=== PATIENT | female | born 1995 | race Caucasian/White ===

== ENCOUNTER 2017-01-13 11:23 | Emergency (ER) | payer OTHER ==
[2017-01-13 11:31] VITALS: BP 123/86
--- NOTE | 2017-01-13 12:45 | UC ---
Throat Pain/Nasal Ankit HPI - HPI Summary HPI Summary: THREE DAYS OF LYMPHNODE ENLARGEMENT ON NECK. 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 LYMPH NODES HAVE DOUBLED IN SIZE SINCE YESTERDAY. NO FEVER. NO FATIGUE. NO COUGH. NO ABDOMINAL PAIN. NO SORE THROAT. NO SOB. - History of Current Complaint Chief Complaint: UCRespiratory Stated Complaint: THROAT PAIN Time Seen by Provider: 01/13/17 12:00 Hx Obtained From: Patient Hx Last Menstrual Period: THIS WEEK Onset/Duration: Gradual Onset, Lasting Days Severity: Moderate Pain Intensity: 0 Pain Scale Used: 0-10 Numeric Cough: None Associated Signs & Symptoms: Positive: Dysphagia, Hoarseness - Epiglottits Risk Factors Epiglottis Risk Factors: Sudden Onset, Muffled Voice - Allergies/Home Medications Allergies/Adverse Reactions: Allergies Allergy/AdvReac Type Severity Reaction Status Date / Time erythromycin ophthalmic Allergy Severe Swelling Uncoded 01/13/17 11:31 Of Face,Lips,& Throat PMH/Surg Hx/FS Hx/Imm Hx Previously Healthy: Yes - Surgical History Surgical History: Yes Surgery Procedure, Year, and Place: BONE MARROW TRANSPLANT [id number]. PERICARDIAL REPAIR AGE 5. BILAT BUNIONECTOMY 2012 [facility]. THYROIDECTOMY 08/2013 [facility]. MULTIPLE EXC SKIN LESIONS. Nerve sheath removal 2016. giant T cell removal 2017. osteosarcomas removed ANKLE,KNEE AND R HAND - 2007, 2009, 2011. Giant T Cell removed 2016. schwannoma removed left ribs april 2016 - Family History Known Family History: Negative: Respiratory Disease - Social History Occupation: Student Lives: With Family Alcohol Use: Occasionally Alcohol Amount: once every 2 weeks Substance Use Type: None Smoking Status (MU): Never Smoked Tobacco - Immunization History Most Recent Influenza Vaccination: 12/2016 Vaccination Up to Date: Yes Review of Systems Constitutional: Negative Skin: Negative Eyes: Negative ENT: Sore Throat, Other - LYMPHNODE ENLARGEMENT Respiratory: Negative Cardiovascular: Negative Gastrointestinal: Negative Genitourinary: Negative Motor: Negative Neurovascular: Negative Musculoskeletal: Negative Neurological: Negative Psychological: Negative Is Patient Immunocompromised?: No All Other Systems Reviewed And Are Negative: Yes Physical Exam Triage Information Reviewed: Yes Appearance: No Pain Distress, Well-Nourished, Ill-Appearing Vital Signs: Initial Vital Signs Temp 98.9 F 01/13/17 11:24 Pulse 113 01/13/17 11:24 Resp 16 01/13/17 11:24 BP 123/86 12/02/17 11:24 Pulse Ox 100 01/13/17 11:24 Vital Signs Reviewed: Yes Eye Exam: Normal ENT: Positive: TMs normal Dental Exam: Normal Neck: Positive: Tenderness @ - ANTERIOR CERVICAL CHAIN, Enlarged Nodes @ - ANTERIOR CERVICAL CHAIN SIGNIFICANT LN ENLARGEMENT Respiratory Exam: Normal Respiratory: Positive: Chest non-tender, Lungs clear, Normal breath sounds, No respiratory distress, No accessory muscle use Cardiovascular Exam: Normal Cardiovascular: Positive: RRR, No Murmur, Pulses Normal, Brisk Capillary Refill Abdominal Exam: Normal Musculoskeletal Exam: Normal Musculoskeletal: Positive: Strength Intact, ROM Intact Neurological Exam: Normal Psychological Exam: Normal Skin Exam: Normal Throat Pain/Nasal Course/Dx - Differential Dx/Diagnosis Differential Diagnosis/HQI/PQRI: Epiglottitis, Paul's Angina, Mononucleosis, Peritonsillar Abscess, Tonsillitis, Other - MUMPS; HEME/ONCOLOGICAL PATHOLOGY Provider Diagnoses: ANTERIOR CERVICAL LYMPHADENOPATHY Discharge - Discharge Plan Condition: Stable Disposition: OTHER Discharge Disposition Comment: ADVISED TO GO TO ED, REFUSED AMBULANCE Patient Education Materials: Lymphadenopathy (ED) Referrals: Kwaku Rowell MD [Primary Care Provider] - Additional Instructions: YOU HAVE REFUSED THE OFFER OF AMBULANCE TRANSPORT AND HAVE ELECTED TO GO TO THE EMERGENCY DEPARTMENT BY PRIVATE CAR. YOU ARE ADVISED TO PROCEED SAFELY, BUT DIRECTLY TO THE EMERGENCY DEPARTMENT FOR CONTINUED EVALUATION.
== END 2017-01-13 12:24 ==
LOC: UCEAST 11:23
DX: R59.1 Generalized enlarged lymph nodes (principal); Z72.89 Other problems related to lifestyle
CPT/HCPCS: 87651; 99212; G0463

== ENCOUNTER 2017-01-13 12:46 | Emergency (ER) | payer OTHER ==
[2017-01-13] MEDS ORDERED: NS 0.9% 1000 ML* 1,000 ML IV ONE (13:13)
[2017-01-13 13:42] LABS: Hematocrit 36 % (35-47); Hemoglobin 12.5 g/dl (12.0-16.0); Mean Corpuscular HGB Conc 35 g/dl (31-36); Mean Corpuscular Hemoglobin 31 pg (27-31); Mean Corpuscular Volume 89 fL (80-97); Mean Platelet Volume 6 um3 (7.4-10.4); Red Blood Count 4.08 10^6/ul (4.0-5.4); Red Cell Distribution Width 14 % (10.5-15); White Blood Count 12.7 10^3/ul (3.5-10.8)
[2017-01-13 14:10] LABS: Albumin 4.6 g/dL (3.2-5.2); BUN/Creatinine Ratio 22.4 (8-20); C Reactive Protein 58.78 mg/L (< 5.00); Calcium 9.8 mg/dL (8.6-10.3); EGFR African American 123.5 (>60); EGFR Non-African American 96.1 (>60); Globulin 3.1 g/dL (2-4); Total Bilirubin 0.5 mg/dL (0.2-1.0); Total Protein 7.7 g/dL (6.4-8.9)
[2017-01-13] MEDS ORDERED: Iohexol 300* (CONTRAST) 10 ML SDV IV ONE (14:14)
[2017-01-13 14:27] LABS: TSH (Thyroid Stimulating Horm) 1.53 mcIU/mL (0.34-5.60)
--- NOTE | 2017-01-13 15:38 | RAD ---
INDICATION: Similar throat with a history of lymphoma. COMPARISON: None TECHNIQUE: A CT scan of the neck was performed with intravenous contrast following intravenous injection of ml of Omnipaque 300 nonionic contrast. Contiguous axial sections were obtained from the skull base through the lung apices. Images were reconstructed in the coronal and sagittal planes. FINDINGS: The airway is patent. The epiglottis and aryepiglottic folds appear within normal limits. No retropharyngeal soft tissue swelling is noted. At the right upper cervical chain there is a level 1 lymph node measuring 1.2 cm in short axis diameter. More inferiorly at level 2 and 3 there are symmetric cervical chain lymph nodes measuring up to 7 mm in short axis diameter. The parotid and submandibular glands appear to be within normal limits. The thyroid gland appears normal. The lung apices appear clear. The visualized portion of the paranasal sinuses and mastoid air cells appear clear. No significant focal osseous abnormality is seen. IMPRESSION: Top normal but not pathologically enlarged cervical chain lymph nodes as described above.
[2017-01-13 15:40] LABS: Mono Internal Control QC Line Present
[2017-01-13] MEDS ORDERED: Ketorolac INJ* 30 MG/ML 1 ML VIAL IV ONE (16:09)
[2017-01-13] MEDS ORDERED: Dexamethasone IV* 4 MG/ML 5 ML VIAL (20 MG) IVPB ONE (16:09)
[2017-01-13] MEDS ORDERED: cefTRIAXone(*) 1 GM in NS 0.9% 50 ML* 50 ML IVPB ONE (16:09)
[2017-01-13] MEDS ORDERED: oxyCODONE TAB* 5 MG TAB PO ONE (16:09)
[2017-01-13] MEDS ORDERED: Azithromycin TAB* 250 MG PO ONE (18:19)
[2017-01-13] MEDS ORDERED: oxyCODONE/Acetamin 5/325 MG* TAB PO ONE (18:20)
--- NOTE | 2017-01-13 18:26 | ED ---
Ashley William Emily, scribed for Praneeth Day MD on 01/13/17 at 1312 . Complex/Multi-Sys Presentation - HPI Summary HPI Summary: This patient is a 21 year old F [facility] by mother with a chief complaint of swelling below bilateral lower jaw since last night. 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 The patient rates the pain 7/10 in severity. Symptoms aggravated by movement. Symptoms alleviated by nothing. Patient reports difficulty swallowing, difficulty breathing, frontal headaches, difficulty moving neck, and rash on central chest. Patient denies sore throat, ear pain, nasal discharge, SOB, CP, congestion, nausea, vomiting, and diarrhea. Allergies noted. - History Of Current Complaint Chief Complaint: EDGeneral Time Seen by Provider: 01/13/17 13:00 Hx Obtained From: Patient Onset/Duration: Sudden Onset, Lasting Days, Still Present Timing: Constant, Days Severity Currently: Moderate Severity Initially: Moderate Aggravating Factor(s): Movement Alleviating Factor(s): Nothing Associated Signs And Symptoms: Positive: Other - Positive difficulty swallowing , difficulty breathing, frontal headaches, difficulty moving neck, and rash on central chest. Negative sore throat, ear pain, nasal discharge, SOB, CP, congestion, nausea, vomiting, and diarrhea. - Allergies/Home Medications Allergies/Adverse Reactions: Allergies Allergy/AdvReac Type Severity Reaction Status Date / Time erythromycin ophthalmic Allergy Severe Swelling Uncoded 01/13/17 11:31 Of Face,Lips,& Throat PMH/Surg Hx/FS Hx/Imm Hx Previously Healthy: No Endocrine/Hematology History: Reports: Hx Blood Disorders - HX LEUKEMIA, Hx Bone Marrow Disease - HX LEUKEMIA, Hx Thyroid Disease - HX THYROID CANCER W/ THYROIDECTOMY Denies: Hx Diabetes Cardiovascular History: Reports: Other Cardiovascular Problems/Disorders - irregular heart rate Denies: Hx Hypertension, Hx Pacemaker/ICD Respiratory History: Denies: Hx Asthma GI History: Reports: Hx Irritable Bowel History: Denies: Hx Renal Disease Musculoskeletal History: Reports: Other Musculoskeletal History - pain to left ribs post tumor removal Sensory History: Reports: Hx Cataracts, Hx Contacts or Glasses Denies: Hx Hearing Aid Opthamlomology History: Reports: Hx Cataracts, Hx Contacts or Glasses Neurological History: Reports: Hx Headaches, Hx Migraine, Hx Nerve Disease - schwannoma tumor removed Psychiatric History: Reports: Hx Anxiety, Hx Depression Denies: Hx Panic Disorder - Cancer History Cancer Type, Location and Year: LEUKEMIA, THYROID, OSTEOSARCOMA-NO TREATMENT AT THIS TIME Hx Chemotherapy: Yes Hx Radiation Therapy: Yes - TOTAL BODY FOR LEUKEMIA - Surgical History Surgery Procedure, Year, and Place: BONE MARROW TRANSPLANT [id number]. PERICARDIAL REPAIR AGE 5. BILAT BUNIONECTOMY 2012 [facility]. THYROIDECTOMY 08/2013 [facility]. MULTIPLE EXC SKIN LESIONS. Nerve sheath removal 2016. giant T cell removal 2016. osteosarcomas removed ANKLE,KNEE AND R HAND - 2007, 2009, 2011. Giant T Cell removed 2016. schwannoma removed left ribs april 2016 Hx Anesthesia Reactions: No Infectious Disease History: No Infectious Disease History: Denies: Traveled Outside the [place] in Last 30 Days - Family History Known Family History: Negative: Respiratory Disease - Social History Occupation: Student Lives: With Family Alcohol Use: Occasionally Alcohol Amount: once every 2 weeks Substance Use Type: Reports: None Smoking Status (MU): Never Smoked Tobacco Review of Systems Eyes: Other ENT: Other - Positive difficuly swallowing. Negative: Sore Throat, Ear Ache, Nasal Discharge Positive: Other - Positive difficulty breathing. Negative chest congestion. Negative: Shortness Of Breath Negative: Vomiting, Diarrhea, Nausea Positive: Other - Positive bilateral lower jaw swelling, difficulty moving neck , and rash on central chest Positive: Headache - Frontal Psychological: Normal All Other Systems Reviewed And Are Negative: Yes Physical Exam Triage Information Reviewed: Yes Vital Signs On Initial Exam: Initial Vitals Temp Pulse Resp BP Pulse Ox 97.8 F 99 16 113/82 100 01/13/17 12:57 01/13/17 12:57 01/13/17 12:57 01/13/17 12:57 01/13/17 12:57 Vital Signs Reviewed: Yes Appearance: Positive: Well-Appearing, No Pain Distress Skin: Positive: Warm, Skin Color Reflects Adequate Perfusion, Dry Head/Face: Positive: Normal Head/Face Inspection Eyes: Positive: EOMI, VERNON ENT: Positive: Other - Voice sounds normal. Scarring noted on both TM. Posterior pharynx only partially visualized because pt is having a hard time moving mouth more than finger width. Neck: Positive: Other: - Swelling upper neck anteriorly. Swelling bilaterally below both sides of the mandible Respiratory/Lung Sounds: Positive: Clear to Auscultation, Breath Sounds Present Cardiovascular: Positive: RRR Abdomen Description: Positive: Nontender, Soft Bowel Sounds: Positive: Present Musculoskeletal: Positive: Normal, Strength/ROM Intact Neurological: Positive: Normal, Sensory/Motor Intact, Alert, Oriented to Person Place, Time Psychiatric: Positive: Affect/Mood Appropriate - Jah Coma Scale Coma Scale Total: 15 Diagnostics - Vital Signs Vital Signs Temp Pulse Resp BP Pulse Ox 01/13/17 12:57 97.8 F 99 16 113/82 100 - Laboratory Lab Results: Lab Results 01/13/17 01/13/17 01/13/17 Range/Units 13:30 13:30 13:30 WBC 12.7 H (3.5-10.8) 10^3/ul RBC 4.08 (4.0-5.4) 10^6/ul Hgb 12.5 (12.0-16.0) g/dl Hct 36 (35-47) % MCV 89 (80-97) fL MCH 31 (27-31) pg MCHC 35 (31-36) g/dl RDW 14 (10.5-15) % Plt Count 344 (150-450) 10^3/ul MPV 6 L (7.4-10.4) um3 Neut % (Auto) 78.5 (38-83) % Lymph % (Auto) 12.6 L (25-47) % Mckinley % (Auto) 8.0 (1-9) % Eos % (Auto) 0.3 (0-6) % Baso % (Auto) 0.6 (0-2) % Absolute Neuts (auto) 9.9 H (1.5-7.7) 10^3/ul Absolute Lymphs (auto) 1.6 (1.0-4.8) 10^3/ul Absolute Monos (auto) 1.0 H (0-0.8) 10^3/ul Absolute Eos (auto) 0 (0-0.6) 10^3/ul Absolute Basos (auto) 0.1 (0-0.2) 10^3/ul Absolute Nucleated RBC 0 10^3/ul Nucleated RBC % 0 INR (Anticoag Therapy) 0.98 (0.77-1.02) APTT 28.3 (26.0-36.3) seconds Sodium 135 (133-145) mmol/L Potassium 4.0 (3.5-5.0) mmol/L Chloride 99 L (101-111) mmol/L Carbon Dioxide 27 (22-32) mmol/L Anion Gap 9 (2-11) mmol/L BUN 17 (6-24) mg/dL Creatinine 0.76 (0.51-0.95) mg/dL Est GFR ( Amer) 123.5 (>60) Est GFR (Non-Af Amer) 96.1 (>60) BUN/Creatinine Ratio 22.4 H (8-20) Glucose 79 (70-100) mg/dL Lactic Acid (0.5-2.0) mmol/L Calcium 9.8 (8.6-10.3) mg/dL Total Bilirubin 0.50 (0.2-1.0) mg/dL AST 16 (13-39) U/L ALT 8 (7-52) U/L Alkaline Phosphatase 56 (34-104) U/L Lactate Dehydrogenase 170 (140-271) U/L C-Reactive Protein 58.78 H (< 5.00) mg/L Total Protein 7.7 (6.4-8.9) g/dL Albumin 4.6 (3.2-5.2) g/dL Globulin 3.1 (2-4) g/dL Albumin/Globulin Ratio 1.5 (1-3) TSH 1.53 (0.34-5.60) mcIU/mL Beta HCG, Quant 1.33 mIU/mL Monoscreen (Negative) 01/13/17 01/13/17 Range/Units 13:30 13:30 WBC (3.5-10.8) 10^3/ul RBC (4.0-5.4) 10^6/ul Hgb (12.0-16.0) g/dl Hct (35-47) % MCV (80-97) fL MCH (27-31) pg MCHC (31-36) g/dl RDW (10.5-15) % Plt Count (150-450) 10^3/ul MPV (7.4-10.4) um3 Neut % (Auto) (38-83) % Lymph % (Auto) (25-47) % Mckinley % (Auto) (1-9) % Eos % (Auto) (0-6) % Baso % (Auto) (0-2) % Absolute Neuts (auto) (1.5-7.7) 10^3/ul Absolute Lymphs (auto) (1.0-4.8) 10^3/ul Absolute Monos (auto) (0-0.8) 10^3/ul Absolute Eos (auto) (0-0.6) 10^3/ul Absolute Basos (auto) (0-0.2) 10^3/ul Absolute Nucleated RBC 10^3/ul Nucleated RBC % INR (Anticoag Therapy) (0.77-1.02) APTT (26.0-36.3) seconds Sodium (133-145) mmol/L Potassium (3.5-5.0) mmol/L Chloride (101-111) mmol/L Carbon Dioxide (22-32) mmol/L Anion Gap (2-11) mmol/L BUN (6-24) mg/dL Creatinine (0.51-0.95) mg/dL Est GFR ( Amer) (>60) Est GFR (Non-Af Amer) (>60) BUN/Creatinine Ratio (8-20) Glucose (70-100) mg/dL Lactic Acid 0.8 (0.5-2.0) mmol/L Calcium (8.6-10.3) mg/dL Total Bilirubin (0.2-1.0) mg/dL AST (13-39) U/L ALT (7-52) U/L Alkaline Phosphatase (34-104) U/L Lactate Dehydrogenase (140-271) U/L C-Reactive Protein (< 5.00) mg/L Total Protein (6.4-8.9) g/dL Albumin (3.2-5.2) g/dL Globulin (2-4) g/dL Albumin/Globulin Ratio (1-3) TSH (0.34-5.60) mcIU/mL Beta HCG, Quant mIU/mL Monoscreen Negative (Negative) Result Diagrams: 01/13/17 13:30 01/13/17 13:30 Lab Statement: Any lab studies that have been ordered have been reviewed, and results considered in the medical decision making process. - CT Neck CT Interpretation Completed By: Radiologist - A neck CT reveals, per radiologist , top normal but not pathologically enlarged cervical chain lymph nodes in radiologist report (see [employer]). ED physician has reviewed this radiology report and agrees. Re-Evaluation - Re-Evaluation First Eval Re-Evaluation Time: 15:50 Change: Worse - Pt reports her throat feels worse Second Eval Re-Evaluation Time: 18:10 Change: Improved Complex Multi-Symp Course/Dx Course Of Treatment: IMPROVED IN ED. DISCUSSED RESULTS WITH PATIENT/MOTHER. WILL TREAT WITH ZPAC, PREDNISONE AND PERCOCET. A BACTERIAL INFECTION OR EARLY MONO ARE BOTH POSSIBILITIES. THERE WERE NO BLASTS REPORTED. WITH THE HX OF LYMPHOMA, PATIENT WILL F/U WITH PMD AND HEME/ONC IF NEEDED. RETURN IF WORSE. - Diagnoses Provider Diagnoses: Lymphadenopathy, cervical Discharge - Discharge Plan Condition: Stable Disposition: HOME Prescriptions: Azithromycin TAB* [Zithromax TAB (Z-BIBIANA) 250 mg #6 tabs] 250 mg PO DAILY #4 tab oxyCODONE/Acetamin 5/325 MG* [Percocet 5/325 TAB*] 1 tab PO Q4H PRN #20 tab MDD 6 PRN Reason: Pain predniSONE TAB* [Deltasone TAB*] 40 mg PO DAILY #8 tab Patient Education Materials: Lymphadenopathy (ED) Referrals: Kwaku Rowell MD [Primary Care Provider] - Additional Instructions: FOLLOW UP WITH YOUR DOCTOR. RETURN TO THE EMERGENCY DEPARTMENT FOR ANY WORSENING OF YOUR CONDITION; PAIN, YOU FEEL ILL, DIFFICULTY BREATHING OR SWALLOWING OR QUESTIONS OR CONCERNS. The documentation as recorded by the Ashley armenta Emily accurately reflects the service I personally performed and the decisions made by me, Praneeth Day MD.
[2017-01-13 18:43] VITALS: BP 117/79
[2017-01-16 15:40] LABS: Mumps Virus IgM Antibody Negative (Negative)
== END 2017-01-13 18:58 | disposition home or self-care (01) ==
LOC: ED 12:46
DX: R59.1 Generalized enlarged lymph nodes (principal); R51 Headache
CPT/HCPCS: 36415; 70491; 80053; 83605; 83615; 84443; 84702; 85025; 85610; 85730; 86140; 86308; 86735; 87040; 96365; 99283; A9270-GY; J0696; J1100; J1885

== ENCOUNTER 2018-01-06 09:58 | Emergency (ER) | payer OTHER ==
--- NOTE | 2018-01-06 10:40 | ED ---
HPI Chest Pain - HPI Summary HPI Summary: This patient is a 22 year old F presenting to [facility] with a chief complaint of sharp CP in right side of chest when breathing since 1 week ago. She reports that it started as right shoulder pain 3 months ago. The patient rates the pain 5/10 in severity currently. Patient reports dyspnea with deep breaths. Patient denies fever, SOB, chills, and coughing. 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 The leukemia was treated with chemotherapy and radiation, while the thyroid cancer was treated with radioactive iodine. She is now in remission. Patient sees Dr. Ulloa for follow-up, and they have been monitoring spots in her right lung for the past year. She has been taking oxycodone every 4 hours which has dulled the pain. - History of Current Complaint Chief Complaint: EDChestPainROMI Time Seen by Provider: 01/06/18 10:07 Hx Obtained From: Patient Hx Last Menstrual Period: THIS WEEK Onset/Duration: Started Weeks Ago - 1 week ago Timing: Constant Current Severity: Moderate Pain Intensity: 5 Pain Scale Used: 0-10 Numeric Chest Pain Location: Right Anterior Chest Pain Radiates: Yes Chest Pain Radiates To:: Shoulder Character: Sharp/Stabbing Aggravating Factor(s): Deep Breaths, Other: - Coughing Associated Signs and Symptoms: Positive: Chest Pain - Right sided, Other: - Dyspnea with deep breaths. Negative: Shortness of Breath, Fever, Chills, Cough - Allergy/Home Medications Allergies/Adverse Reactions: Allergies Allergy/AdvReac Type Severity Reaction Status Date / Time erythromycin ophthalmic Allergy Severe Swelling Uncoded 04/02/17 08:22 Of Face,Lips,& Throat Home Medications: Home Medications Cyanocobalamin (Vitamin B-12) [Vitamin B-12] 500 mcg PO BID 01/06/18 [History Confirmed 01/06/18] Topiramate TAB(*) [Topamax 25 MG tab] 25 mg PO BEDTIME 01/06/18 [History Confirmed 01/06/18] hydrOXYzine HCL TAB* [Atarax 25 MG TAB*] 25 mg PO TID PRN 01/06/18 [History Confirmed 01/06/18] traMADol TAB* [Ultram*] 50 mg PO TID 01/06/18 [History Confirmed 01/06/18] PMH/Surg Hx/FS Hx/Imm Hx Endocrine/Hematology History: Reports: Hx Blood Disorders - HX LEUKEMIA, Hx Bone Marrow Disease - HX LEUKEMIA, Hx Thyroid Disease - HX THYROID CANCER W/ THYROIDECTOMY Denies: Hx Diabetes Cardiovascular History: Reports: Other Cardiovascular Problems/Disorders - irregular heart rate Denies: Hx Hypertension, Hx Pacemaker/ICD Respiratory History: Denies: Hx Asthma GI History: Reports: Hx Irritable Bowel History: Denies: Hx Renal Disease Musculoskeletal History: Reports: Other Musculoskeletal History - pain to left ribs post tumor removal Sensory History: Reports: Hx Cataracts, Hx Contacts or Glasses Denies: Hx Hearing Aid Opthamlomology History: Reports: Hx Cataracts, Hx Contacts or Glasses Neurological History: Reports: Hx Headaches, Hx Migraine, Hx Nerve Disease - schwannoma tumor removed, Other Neuro Impairments/Disorders - PAIN CLINIC PT. Psychiatric History: Reports: Hx Anxiety, Hx Depression Denies: Hx Panic Disorder - Cancer History Cancer Type, Location and Year: LEUKEMIA, THYROID, OSTEOSARCOMA-NO TREATMENT AT THIS TIME Hx Chemotherapy: Yes Hx Radiation Therapy: Yes - TOTAL BODY FOR LEUKEMIA - Surgical History Surgery Procedure, Year, and Place: BONE MARROW TRANSPLANT [id number]. PERICARDIAL REPAIR AGE 5. BILAT BUNIONECTOMY 2012 [facility]. THYROIDECTOMY 08/2013 [facility]. MULTIPLE EXC SKIN LESIONS. OSTEOCHONDROMAS removed ANKLE,KNEE AND R HAND - 2007, 2009, 2011. 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 Negative: Shortness Of Breath, Cough Positive: Other - Right shoulder pain All Other Systems Reviewed And Are Negative: Yes Physical Exam - Summary Physical Exam Summary: VITAL SIGNS: Reviewed. GENERAL: Patient is a well-developed and nourished FEMALE who is lying comfortable in the stretcher. Patient is not in any acute respiratory distress. HEAD AND FACE: No signs of trauma. No ecchymosis, hematomas or skull depressions. No sinus tenderness. EYES: PERRLA, EOMI x 2, No injected conjunctiva, no nystagmus. EARS: Hearing grossly intact. Ear canals and tympanic membranes are within normal limits. MOUTH: Oropharynx within normal limits. NECK: Supple, trachea is midline, no adenopathy, no JVD, no carotid bruit, no c- spine tenderness, neck with full ROM. CHEST: Right sided chest tenderness LUNGS: Clear to auscultation bilaterally. No wheezing or crackles. CVS: Regular rate and rhythm, S1 and S2 present, no murmurs or gallops appreciated. ABDOMEN: Soft, non-tender. No signs of distention. No rebound no guarding, and no masses palpated. Bowel sounds are normal. EXTREMITIES: FROM in all major joints, no edema, no cyanosis or clubbing. NEURO: Alert and oriented x 3. No acute neurological deficits. Speech is normal and follows commands. SKIN: Dry and warm Triage Information Reviewed: Yes Vital Signs On Initial Exam: Initial Vitals Temp Pulse Resp BP Pulse Ox 97.0 F 77 14 112/76 100 01/06/18 10:00 01/06/18 10:00 01/06/18 10:00 01/06/18 10:00 01/06/18 10:00 Vital Signs Reviewed: Yes Diagnostics - Vital Signs Vital Signs Temp Pulse Resp BP Pulse Ox 01/06/18 10:00 97.0 F 77 14 112/76 100 - Laboratory Result Diagrams: 01/06/18 10:32 01/06/18 10:32 Lab Statement: Any lab studies that have been ordered have been reviewed, and results considered in the medical decision making process. - Radiology Chest X-Ray Radiology Interpretation Completed By: Radiologist - 11:45. NO ACTIVE CARDIOPULMONARY DISEASE IS NOTED. ED Physician has reviewed this imaging report. - CT Chest/Thorax CTA CT Interpretation Completed By: Radiologist - 12:08. No pulmonary embolus is noted. No aortic dissection or aneurysmal dilatation. Small nonspecific 5 mm nonsolid nodule in the right lower lobe peripherally. ED Physician has reviewed this imaging report. - EKG 10:36 Cardiac Rate: NL - 72 BPM EKG Rhythm: Sinus Rhythm ST Segment: Normal Summary of EKG Findings: Inverted t wave in III Chest Pain Course/Dx - Course Assessment/Plan: This patient is a 22 year old F presenting to [facility] with a chief complaint of sharp CP in right side of chest when breathing since 1 week ago. She reports that it started as right shoulder pain 3 months ago. The patient rates the pain 5/10 in severity currently. Patient reports dyspnea with deep breaths. Patient denies fever, SOB, chills, and coughing. 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 The leukemia was treated with chemotherapy and radiation, while the thyroid cancer was treated with radioactive iodine. She is now in remission. Patient sees Dr. Ulloa for follow-up, and they have been monitoring spots in her right lung for the past year. She has been taking oxycodone every 4 hours which has dulled the pain. Blood work without any significant abnormality except for slight anemia, d-dimer is 291,. Magnesium is 1.8 TSH is 8.3. Urinalysis is negative for UTI. Chest x-ray impression: No acute cuddy pulmonary disease. Because of her comorbidities, the shortness of breath and the chest pain I decided to do a chest CT to rule out PE. Chest CT impression: No pulmonary embolism is noted. No Oretic dissection or aneurysm dilation. A small nonspecific a 5 mm nodule in the right lower lobe peripherally. In the ED course the patient was given normal saline and Toradol. The symptoms have improved. At this point the patient will be discharged home with follow-up with Dr. Ulloa tomorrow morning. Patient is hemodynamically stable alert and oriented 3. I discussed all the findings and test results with the patient. Patient was instructed to return to the emergency room immediately if any of the symptoms return or worsens. Plan of care was discussed with the patient and understands and agrees. All questions were answered at patient satisfaction. There were no further complaints or concerns. Lung exam before discharge: CTA B/L. Good air exchange. No wheezing or crackles heard. CVS: S1 and S2 present. No murmurs appreciated. Patient is alert and oriented x 3. Patient is hemodynamically stable. Patient will be discharged home with follow up PCP in the next 2-3 days - Chest Pain Differential Diagnosis/HQI/PQRI: Acute MS, ACS, Angina, CHF, Chest Wall, GI Disease, Lower Respiratory Infection, Pulmonary Edema - Diagnoses Provider Diagnoses: Atypical chest pain Discharge - Sign-Out/Discharge Documenting (check all that apply): Patient Departure - D/C - Discharge Plan Condition: Stable Disposition: HOME Patient Education Materials: Chest Pain (ED) Referrals: Kwaku Rowell MD [Primary Care Provider] - 3 Days Additional Instructions: RETURN TO (URGENT CARE OR THE ED) FOR ANY WORSENING OR NEW SYMPTOMS. Follow up with your primary care provider in 3 days. - Billing Disposition and Condition Condition: STABLE Disposition: Home - Attestation Statements Document Initiated by Scribe: Yes Documenting Scribe: Arie Casarez Provider For Whom Tea is Documenting (Include Credential): Homero Jenkins MD Scribe Attestation: Arie William, scribed for Homero Jenkins MD on 01/06/18 at 1841. Scribe Documentation Reviewed: Yes Provider Attestation: The documentation as recorded by the Arie armenta accurately reflects the service I personally performed and the decisions made by me, Homero Jenkins MD
[2018-01-06 10:43] LABS: ABS Basophils 0 10^3/ul (0-0.2); ABS Eosinophils 0.1 10^3/ul (0-0.6); ABS Lymphocytes 2.1 10^3/ul (1.0-4.8); ABS Monocytes 0.5 10^3/ul (0-0.8); ABS Neutrophils 4.7 10^3/ul (1.5-7.7); ABS Nucleated RBC 0 10^3/ul; Eosinophil % 1.1 % (0-6); Hematocrit 33 % (35-47); Hemoglobin 11.3 g/dl (12.0-16.0); Mean Corpuscular HGB Conc 34 g/dl (31-36); Mean Corpuscular Hemoglobin 30 pg (27-31); Mean Corpuscular Volume 88 fL (80-97); Mean Platelet Volume 6.9 fL (7.4-10.4); Nucleated Red Blood Cells % 0.1; Platelet Count 330 10^3/ul (150-450); Red Blood Count 3.79 10^6/ul (4.00-5.40); Red Cell Distribution Width 14 % (10.5-15); White Blood Count 7.4 10^3/ul (3.5-10.8)
[2018-01-06] MEDS ORDERED: Iohexol 350* (CONTRAST) 500 ML MDV IV ONE (11:25)
[2018-01-06 12:16] LABS: Urine Appearance Clear; Urine Blood Negative (Negative); Urine Color Straw; Urine Ketones Negative (Negative); Urine Protein Negative (Negative); Urine Red Blood Cell 1+(3-5/hpf) (Absent); Urine Specific Gravity 1.024 (1.010-1.030); Urine Urobilinogen Negative (Negative); Urine White Blood Cell Trace(0-5/hpf) (Absent)
[2018-01-06] MEDS ORDERED: Ketorolac INJ* 30 MG/ML 1 ML VIAL IV PUSH ONE (12:42)
[2018-01-06 13:39] VITALS: BP 111/78
--- NOTE | 2018-01-09 08:16 | ED ---
Progress - Progress Note Progress Note: Patient's final urine culture reveals 50-75,000 Klebsiella oxytoca. She was seen for right-sided chest and shoulder pain and multiple pathologies were ruled out for this complaint. There is no report of abdominal pain or urinary/ vaginal symptoms. U/A was also fairly unremarkable and labs did not indicate acute infection. Due to her history of cancer w/ tx's, attempted to contact patient to update her symptoms today in the event that she has a UTI that was caught early and is progressing however was unable to reach patient. Left message call. Her discharge summary indicates she was to see her oncologist the following day. Will mail letter for follow-up as well. Rayshawn fongrk aware. Course/Dx - Diagnoses Provider Diagnoses: Atypical chest pain Discharge - Sign-Out/Discharge Documenting (check all that apply): Post-Discharge Follow Up - Discharge Plan Condition: Stable Disposition: HOME Patient Education Materials: Chest Pain (ED) Referrals: Kwaku Rowell MD [Primary Care Provider] - 3 Days Additional Instructions: RETURN TO (URGENT CARE OR THE ED) FOR ANY WORSENING OR NEW SYMPTOMS. Follow up with your primary care provider in 3 days. - Billing Disposition and Condition Condition: STABLE Disposition: Home
== END 2018-01-06 13:39 | disposition home or self-care (01) ==
LOC: ED 09:58
DX: R07.89 Other chest pain (principal); R94.31 Abnormal electrocardiogram [ECG] [EKG]
CPT/HCPCS: 36415; 71045; 71275; 80053; 81003; 81015; 82550; 82553; 83605; 83735; 83880; 84443; 84484; 84702; 85025; 85379; 87077; 87086; 87186; 93005; 96374; 96375; 99283; J1885; Q9967